=== PATIENT | female | born 1965 | race Caucasian/White ===

== ENCOUNTER 2022-07-02 18:00 | Emergency (ER) | payer OTHER ==
[2022-07-02 21:23] LABS: RED BLOOD COUNT 3.92 M/UL (4.00-5.10); WHITE BLOOD COUNT 6.6 K/UL (4.5-11.0)
[2022-07-02 21:41] LABS: BUN/CREATININE RATIO 12 (0-10)
[2022-07-02] MEDS ORDERED: PROVENTIL HFA6.7 GM INH (22:15)
[2022-07-02] MEDS ORDERED: FLONASE 0.05% N16 GM (22:15)
[2022-07-02] MEDS ORDERED: MYCOSTATIN100000 UTS PO (22:15)
== END 2022-07-02 23:00 | disposition home or self-care (01) ==
LOC: ER1 18:00
PROVIDERS: Student in an Organized Health Care Education/Training Program
DX: U07.1 COVID-19 (principal); J06.9 Acute upper respiratory infection, unspecified; B37.0 Candidal stomatitis; F17.210 Nicotine dependence, cigarettes, uncomplicated
CPT/HCPCS: 71045; 80053; 82550; 82553; 84484; 85025; 93005; 94664; 99285